=== PATIENT | male | born 1960 | race Caucasian/White ===

== ENCOUNTER 2018-11-16 20:17 | Inpatient (IN) | payer SELFPAY ==
[~2018-11-16] VITALS: Ht 180.3 cm; Wt 99.8 kg
[2018-11-16 20:21] VITALS: Ht 180.3 cm; Wt 99.8 kg
--- NOTE | 2018-11-16 20:24 | NUR ---
EKG DONE IN TRIAGE
[2018-11-16 20:47] LABS: PLATELET COUNT 191 x10^3mcL (130-400); RED CELL DISTRIBUTION WIDTH 13.9 % (11.5-14.5)
[2018-11-16 20:59] LABS: CALCIUM 8.3 mg/dL (8.5-10.1); CARBON DIOXIDE 24.3 mmol/L (21-32); CHLORIDE SERUM 102 mmol/L (98-107); GFR1 > 60 mL/min; GLUCOSE SERUM 280 mg/dL (74-106); POTASSIUM SERUM 3.4 mmol/L (3.5-5.1); SODIUM SERUM 140 mmol/L (136-145)
--- NOTE | 2018-11-16 21:00 | NUR ---
PT COMES TO ED WITH C/C BILATERAL LOWER CHEST PAIN THAT BEGAN THIS AM. PT IS AAOX4. RESP E/U ON ROOM AIR. CHEST PAIN IS TO BILATERAL LOWER CHEST. PAIN IS 1/10 AND DULL IN NATURE. PT REPORTS "THE PAIN FEELS LIKE WHEN YOU HAVE A BAD COUGH." PT ALSO REPORTS GEN WEAKNESS AND INABILITY TO URINATE SINCE THIS AM. ATTMEPTS TO URINATE ASSOCIATED WITH BURNING LIKE SENSATION. PT ABLE TO URINAT EUPON ARRIVAL. DENIES ANY HX OF URINE RETENTION. PT CONNECTED TO MONITOR. AWAITING MSE.
[2018-11-16 21:04] LABS: ALBUMIN 3.7 g/dL (3.4-5.0); ALKALINE PHOSPHATASE 131 U/L (46-116); ALT/SGPT 44 U/L (16-63); AST/SGOT 17 U/L (15-37); BILIRUBIN TOTAL 1.4 mg/dL (0.20-1.00); TOTAL PROTEIN, SERUM 7.5 g/dL (6.4-8.2)
[2018-11-16 21:10] LABS: BAND NEUTROPHIL 3 % (0-10); BASOPHIL 0 % (0-2); MONOCYTE 4 % (0-7); SEGMENTED NEUTROPHILS 52 % (37-75)
[2018-11-16 21:11] LABS: rbc morphology (normal/abnorm) NORMAL (NORMAL)
[2018-11-16 21:24] LABS: UA SPECIFIC GRAVITY 1.025 (1.005-1.035); microscopic required? YES; urine erythrocyte 3+ (NEGATIVE)
[2018-11-16 21:28] LABS: LIPASE 195 IU/L (73-393)
[2018-11-16 21:35] LABS: AMPHETAMINE QUAL UR NONE DETECTED (See below)
[2018-11-16] MEDS ORDERED: METFORMIN HCL1000 MG PO (22:18)
[2018-11-16] MEDS ORDERED: HYDROCHLOROTHIA25 MG PO (22:19)
[2018-11-16] MEDS ORDERED: GLUCOTROL10 MG PO (22:19)
[2018-11-16] MEDS ORDERED: ACT15 PO (22:20)
[2018-11-16] MEDS ORDERED: LISINOPRIL40 MG PO (22:20)
[2018-11-16] MEDS ORDERED: NOR5 PO (22:21)
--- NOTE | 2018-11-16 23:21 | NUR ---
REPORT CALLED AND GIVEN TO EILEEN MONTILLA.
[2018-11-16 23:51] LABS: CHOLESTEROL/HDL RATIO 2.7; MAGNESIUM 1.6 mg/dL (1.8-2.4)
[2018-11-17] VITALS (7 sets, daily range): BP systolic 99–152; BP diastolic 60–78
[2018-11-17] LABS: FREE T4 1.15 ng/dL (0.76-1.46); FREE THYROXINE INDEX 3.1 ug/dL (1.4-4.5); T4(THYROXINE) 9.5 ug/dL (4.7-13.3)
--- NOTE | 2018-11-17 00:08 | NUR ---
RECEIVED PT FROM ED VIA CHRISTIAN. ORIENTED PT TO ROOM AND SURROUNDINGS. IV NOTED TO LAC PATENT AND INTACT. TELE 2 PLACED ON PT READING NSR WITH BBB. INSTRUCTED PT ON THE USE OF CALL LIGHT FOR ASSISTANCE. ENDORSED PT TO PRIMARY NURSE ELADIA
--- NOTE | 2018-11-17 00:09 | NUR ---
RECEIVED PT FROM EILEEN PRUITT. PT A/OX4. DENIES SOB ON RA. IVS PATENT, INFUSING NS WITH NO S/S OF INFILTRATION. ORIENTED PT TO ROOM AND SURROUNDINGS. CALL LIGHT WITHIN REACH, BED IN LOW POSITION. WILL CONTINUE TO MONITOR.
--- NOTE | 2018-11-17 01:59 | NUR ---
DR MORFIN MADE AWARE OF LACTIC ACID AND TACHYCARDIA (HR 125). NO FURTHER ORDERS AT THIS TIME. WILL CONTINUE TO MONITOR.
--- NOTE | 2018-11-17 04:54 | NUR ---
PT RESTING IN NO ACUTE DISTRESS. RR EVEN AND UNLABORED. CALL LIGHT WITHIN REACH, BED IN LOW POSITION. WILL CONTINUE TO MONITOR.
--- NOTE | 2018-11-17 05:35 | NUR ---
BLOOD SUGAR 268. PT REFUSED INSULIN COVERAGE. DR MORFIN MADE AWARE.
--- NOTE | 2018-11-17 07:11 | NUR ---
ASSUMED CARE OF PATIENT. SEEN RESTING THIS MORNING WITH EQUAL AND UNLABORED RESPIRATIONS. NO APPARENT DISTRESS NOTED. IV TO RAC AND LAC PATENT AND INTACT, INFUSING NS AT 150ML/HR. WILL CONTINUE TO MONITOR.
[2018-11-17 08:10] LABS: CHLORIDE SERUM 102 mmol/L (98-107); CREATININE SERUM 0.8 mg/dL (0.7-1.3); GFR1 > 60 mL/min; GLUCOSE SERUM 237 mg/dL (74-106); MAGNESIUM 1.7 mg/dL (1.8-2.4); PHOSPHOROUS 3.2 mg/dL (2.5-4.9); POTASSIUM SERUM 3.4 mmol/L (3.5-5.1); SODIUM SERUM 141 mmol/L (136-145)
--- NOTE | 2018-11-17 08:10 | NUR ---
IV ON LAC REMOVED BY PATIENT WHEN MOVING. CATHTER REMOVED INTACT.
[2018-11-17 08:18] LABS: PLATELET COUNT 167 x10^3mcL (130-400); RED CELL DISTRIBUTION WIDTH 13.9 % (11.5-14.5)
--- NOTE | 2018-11-17 08:25 | NUR ---
REPORT FROM LAB OF WBC OF 23.4. WBC TRENDING DOWN, PATIENT ON ROCEPHIN.
[2018-11-17 09:56] LABS: BAND NEUTROPHIL 0 % (0-10); MONOCYTE 2 % (0-7); SEGMENTED NEUTROPHILS 61 % (37-75)
[2018-11-17 09:57] LABS: BASOPHIL 0 % (0-2); rbc morphology (normal/abnorm) ABNORMAL (NORMAL)
--- NOTE | 2018-11-17 10:08 | NUR ---
PATIENT SEEN RESTING WITH EQUAL AND UNLABORED RESPIRATIONS. NO APPARENT DISTRESS NOTED. IV TO RFA PATENT. NO NEW ISSUES.
--- NOTE | 2018-11-17 11:27 | NUR ---
SECOND CALL FROM PATIENTS REQUESTING PSA LEVEL. SHE STATES HIS PCP IS REQUESTING THESE LABS. NOTIFIED. WILL NOT BE DONE AT THIS TIME THERE IS NO INDICATION.
--- NOTE | 2018-11-17 11:58 | NUR ---
STUDENT NURSE AND INSTRUCTOR REPORTING ELEVATED BS IN 200, PATIENT REFUSING INSULIN. EXPLAINED TO PATIENT WHILE IN HOSPITAL, HUMULIN R IS USED FOR COVERAGE. PATIENT STATES HE ONLY USES PO MEDICATIONS AT HOME. PATIENT IS AGREEABLE TO UTILIZING INSULIN FOR BS COVERAGE.
--- NOTE | 2018-11-17 13:31 | NUR ---
PATIENT SEEN IN ROOM WITH AT BEDSIDE. NO COMPLAINTS OF PAIN OR DISCOMFORT. NO APPARENT DISTRESSW NOTED.
--- NOTE | 2018-11-17 13:52 | NUR ---
TELEMONITOR REMOVED PER TRANSFER TO [facility] ORDERS.
--- NOTE | 2018-11-17 15:01 | NUR ---
Discount pharmacy card and list to low cost medical clinics given to patient by Jameel Kerns.
--- NOTE | 2018-11-17 17:29 | NUR ---
URINE SAMPLE COLLECTED AND SENT TO LAB
--- NOTE | 2018-11-17 18:19 | NUR ---
PATIENT REQUESTING TO SHOWER. PAGED.
--- NOTE | 2018-11-17 18:40 | NUR ---
PATIENT IN BED WITH NO COMPLAINTS OF PAIN OR DISCOMFORT. NO APPARENT DISTRESS NOTED. IV TO RAC PATENT AND INFSUING NS AT 150 ML/HR. WILL ENDORSE CARE TO ONCOMING RN.
--- NOTE | 2018-11-17 19:25 | NUR ---
RECIEVED PT IN BED WITH AT BEDSIDE, PT DENIES PAIN OR SOB AT THIS TIME, ASSESSMENT PERFORMED AT THIS TIME, PT IS A/OX4 WITH NO COMPLAINTS OF CARRANZA OR DIZZINESS AT THIS TIME, PT ABLE TO MAKE NEEDS KNOWN, SAFETY PRECAUTIONS IN PLACE, ALL NEEDS ATTENDED TO, WILL CONTINUE TO MONITOR
--- NOTE | 2018-11-17 21:45 | NUR ---
PT AND AT BEDSIDE, ALL NEEDS ATTENDED TO, NO DISTRESS NOTED AT THIS TIME. WILL CONTINUE TO MONITOR
--- NOTE | 2018-11-17 23:54 | NUR ---
PT RESTING IN BED WITH AT BEDSIDE, NO ACUTE DISTRESS NOTED AT THIS TIME, ALL NEEDS ATTENDED TO WILL CONITNUE TO MONITOR
--- NOTE | 2018-11-18 00:30 | NUR ---
PT RESTING IN BED WITH NO ACUTE DISTRESS NOTED AT THIS TIME. AT BEDSIDE RESTING, ALL PT NEEDS ATTENDED TO, SAFETY PRECAUTIONS IN PLACE, WILL CONTINUE TO MONITOR
[2018-11-18 05:42] VITALS: BP 138/78
--- NOTE | 2018-11-18 06:05 | NUR ---
PT RESTED COMFORTABLY THROUGH THE EVENING WITH NO ACUTE DISRESS, PT SLEPT AT BEDSIDE, CONCERNS REGUARDING SHOWER ORDER WERE RELAYED TO PHYSICIAN, AND DR MORFIN WANTED TO WAIT UNTIL TODAY DURNING ROUNDS TO ASSESS IF APPROPRIATE FOR SHOWER ORDER, ALL PT NEEDS ATTENDED TO SAFETY PRECAUTIONS MAINTAINED, WILL CONTINUE TO MONITOR AND ENDORSE CARE
[2018-11-18 06:36] LABS: PLATELET COUNT 167 x10^3mcL (130-400); RED CELL DISTRIBUTION WIDTH 13.9 % (11.5-14.5)
[2018-11-18 07:05] LABS: CALCIUM 7.9 mg/dL (8.5-10.1); CARBON DIOXIDE 22.8 mmol/L (21-32); CHLORIDE SERUM 107 mmol/L (98-107); CREATININE SERUM 0.7 mg/dL (0.7-1.3); GFR1 > 60 mL/min; GLUCOSE SERUM 244 mg/dL (74-106); MAGNESIUM 1.9 mg/dL (1.8-2.4); PHOSPHOROUS 2.2 mg/dL (2.5-4.9); POTASSIUM SERUM 3.9 mmol/L (3.5-5.1); SODIUM SERUM 141 mmol/L (136-145)
--- NOTE | 2018-11-18 07:15 | NUR ---
ASSUMED CARE OF PATIENT. SEEN RESTING THIS MORNING WITH AT BEDSIDE. RESTING WITH EQUALAND UNLABORED RESPIRATIONS. NO APPARENT DISTRESS NOTED. IV TO RAC PATENT AND INFSUING NS AT 100ML/HR. WILL CONTINUE TO MONITOR.
--- NOTE | 2018-11-18 08:01 | NUR ---
CRITICAL VALUE FROM LAB OF WBC 21.1. WBC DOWNTRENDING, ON ROCEPHIN.
[2018-11-18 08:10] VITALS: BP 136/81
--- NOTE | 2018-11-18 08:31 | NUR ---
PATIENT REPORTING CONSTIPATION, PRN COLACE PROVIDED.
[2018-11-18 09:17] LABS: BAND NEUTROPHIL 2 % (0-10); BASOPHIL 0 % (0-2); MONOCYTE 4 % (0-7); PLATELET MORPHOLOGY PLATELETS DECREASED; SEGMENTED NEUTROPHILS 78 % (37-75)
[2018-11-18 09:18] LABS: rbc morphology (normal/abnorm) ABNORMAL (NORMAL)
--- NOTE | 2018-11-18 10:30 | NUR ---
RD provided diabetic diet education to both patinent and . Provided handouts of Type 2 Diabetic Nutrition Therapy. Went over CHO sources, portions size, and meal plans. Encouraged patient and to attend [facility] diabetic class.
[2018-11-18] MEDS ORDERED: FLO4 PO (10:59)
[2018-11-18] MEDS ORDERED: CIPRO500 MG PO (11:00)
[2018-11-18] MEDS ORDERED: JANUVIA100 M1 PO (11:01)
[2018-11-18 11:03] VITALS: BP 136/81
[2018-11-18] MEDS ORDERED: LOT1C TOP (11:03)
[2018-11-18] MEDS ORDERED: LISINOPRIL40 MG PO (11:18)
--- NOTE | 2018-11-18 11:31 | NUR ---
WOUND PHOTOS TAKEN, PLACED IN FOLDER
--- NOTE | 2018-11-18 11:59 | NUR ---
DISCHARGE PAPERWORK AND EDUCATION PROVIDED. IV REMOVED WITH CATHETER INTACT. NO COMPLAINTS OF PAIN OR DISCOMFORT, NO APPARENT DISTRESS NOTED. PATIENT REQUESTING TO DISCAHRGE AFTER LUNCH
== END 2018-11-18 13:05 | disposition home or self-care (01) | DRG 872 ==
LOC: ED 20:17 → DU 22:42 → MU 11-17 16:06
PROVIDERS: Emergency Medicine; ADMIT Internal Medicine
DX: A41.9 Sepsis, unspecified organism (principal); N39.0 Urinary tract infection, site not specified; N41.0 Acute prostatitis; I10 Essential (primary) hypertension; E11.65 Type 2 diabetes mellitus with hyperglycemia; E87.6 Hypokalemia; F12.90 Cannabis use, unspecified, uncomplicated; R65.20 Severe sepsis without septic shock; N48.1 Balanitis; E83.42 Hypomagnesemia; E83.51 Hypocalcemia; E83.39 Other disorders of phosphorus metabolism; Z95.1 Presence of aortocoronary bypass graft; Z72.89 Other problems related to lifestyle; Z79.84 Long term (current) use of oral hypoglycemic drugs; Z83.3 Family history of diabetes mellitus; Z79.899 Other long term (current) drug therapy
CPT/HCPCS: 82962; 83880; 84439; 87491; 87591; G0378; J0696; J1885; J7030; J7040; Q0092